=== PATIENT | male | born 1955 | race Caucasian/White ===

== ENCOUNTER 2023-09-16 12:06 | Emergency (ER) | payer MEDICARE ==
[~2023-09-16] VITALS: Ht 172.7 cm; Wt 88.7 kg
[~2023-09-16 12:06] MED LIST: CHLO125TA PO; CORE25TA PO; SPIR-10 PO
[2023-09-16 12:08] VITALS: TEMP 98.2; O2SAT 97
[2023-09-16 13:52] LABS: BASO % 0.2 % (0.0-1.0); EOS # 0.1 10^3/uL (0.0-0.5); EOS % 1.9 % (0.0-3.0); HEMATOCRIT 42.3 % (42.0-52.0); HEMOGLOBIN 14.9 g/dl (13.5-17.5); LYMPH % 23.4 % (24.0-44.0); MEAN CORPUSCULAR HEMOGLOBIN 31.7 pg (27.0-33.0); MEAN CORPUSCULAR HGB CONC 35.2 g/dl (32.0-36.5); MONO # 0.5 10^3/uL (0.0-0.8); MONO % 10.9 % (2.0-8.0); NEUTROPHILS # 2.7 10^3/uL (1.5-8.5); NEUTROPHILS % 62.7 % (36.0-66.0); PLATELET COUNT, AUTOMATED 221 10^3/uL (150-450); WHITE BLOOD COUNT 4.3 10^3/uL (4.0-10.0)
[2023-09-16 14:09] LABS: BLOOD UREA NITROGEN 17 MG/DL (9-23); CALCIUM LEVEL 9.7 MG/DL (8.3-10.6); CARBON DIOXIDE LEVEL 29 MMOL/L (20-31); CHLORIDE LEVEL 108 MMOL/L (98-107); CK-MB VALUE MASS < 1.0 NG/ML (<3.6); CPK CREATINE PHOSPHOKINASE 33 U/L (46-171); CREATININE FOR GFR 0.91 MG/DL (0.70-1.30); GLOMERULAR FILTRATION RATE > 60.0 (>49); GLUCOSE, FASTING 101 MG/DL (74-106); MB/CK RELATIVE INDEX 3.03 (< OR =4); SODIUM LEVEL 136 MMOL/L (136-145)
[2023-09-16 14:46] VITALS: BP 222/128
[2023-09-16] MEDS ORDERED: SPIR-10 PO (14:51)
[2023-09-16] MEDS ORDERED: CARV25TA PO (14:51)
[2023-09-16] MEDS ORDERED: CHLO125TA PO (14:51)
== END 2023-09-16 14:56 | disposition home or self-care (01) ==
LOC: M ED 12:06
DX: I10 Essential (primary) hypertension (principal); Z76.0 Encounter for issue of repeat prescription; Z79.899 Other long term (current) drug therapy; Z79.52 Long term (current) use of systemic steroids

== ENCOUNTER → 2024-01-31 | Outpatient (REF) | payer MEDICARE ==
[~2024-01-31] MED LIST changes: +CARV25TA PO
== END ==
LOC: M LAB REF 16:59
PROVIDERS: ATTEND Registered Nurse
DX: R30.0 Dysuria (principal)

== ENCOUNTER → 2024-02-08 | Outpatient (CLI) | payer MEDICARE | LOC: M RAD 08:50 | PROVIDERS: ATTEND Internal Medicine Nephrology | DX: I15.0 Renovascular hypertension (principal); I70.1 Atherosclerosis of renal artery ==